=== PATIENT | female | born 1965 | race Caucasian/White ===

== ENCOUNTER 2017-03-04 01:10 | Emergency (ER) | payer MEDICAID ==
[~2017-03-04] VITALS: Wt 70.0 kg
[2017-03-04] MEDS ORDERED: ONDANSETRON 4 MG INJ IV STA ×2 (01:23)
[2017-03-04 02:31] VITALS: BP 120/73; PULSE 78; RESP 16
--- NOTE | 2017-03-04 03:16 | ERD ---
ER Documentation Chief Complaint Date/Time DATE: 03/04/17 TIME: 03:14 Chief Complaint ALOC ?ETOH ?drug use HPI This 51-year-old was brought in by her daughter for vomiting being very intoxicated after she drank extremely large ivone. She does not regularly drink alcohol. She is feeling fine all day until she drank the Ivone. She then began vomiting seemed very intoxicated. There is no trauma. Patient herself states that she thinks she drank too much and apologizes. ROS All systems reviewed and are negative except as per history of present illness. Allergies Allergies: Coded Allergies: No Known Drug Allergies (Verified Allergy, Unknown, 03/04/17) PMhx/Soc History of Surgery: Yes (left mastectomy/lumpectomy/lymphectomy) Anesthesia Reaction: No Hx Miscellaneous Medical Probl: Yes (breast CA; finnished chemo 02/19/17) Hx Alcohol Use: Yes (rarely) Hx Substance Use: No Hx Tobacco Use: No Smoking Status: Never smoker Physical Exam Vitals Vital Signs Date Time Temp Pulse Resp B/P Pulse Ox O2 Delivery O2 Flow Rate FiO2 03/04/17 02:31 78 16 120/73 99 Room Air 03/04/17 01:11 95.7 61 16 97 Physical Exam Const: [] Mild distress, holding emesis bag Head: Atraumatic Eyes: Normal Conjunctiva ENT: Normal External Ears, Nose and Mouth. Neck: Full range of motion..~ No meningismus. Resp: Clear to auscultation bilaterally Cardio: Regular rate and rhythm, no murmurs Abd: Soft, non tender, non distended. Normal bowel sounds Skin: No petechiae or rashes Back: No midline or flank tenderness Ext: No cyanosis, or edema Neur: Awake and alert and oriented 3, no focal deficits Psych: Normal Mood and Affect Results 24 hrs Current Medications Medications (Trade) Dose Ordered Sig/Hetal Route PRN Reason Start Time Stop Time Status Last Admin Dose Admin Ondansetron HCl (Zofran Inj) 4 mg ONCE STAT IV 03/04/17 01:23 03/04/17 01:24 DC 03/04/17 01:30 Ondansetron HCl (Zofran Inj) 4 mg ONCE STAT IV 03/04/17 01:23 03/04/17 01:24 DC 03/04/17 01:30 Procedures/MDM Patient was given Zofran injection of 8 mg as well as a liter of IV fluid. She was observed for. During which time she began feeling much better. 3 family members are now present at the bedside and are comfortable taking the patient home. Told the patient that I would get her icewater so that she may go home and I could be sure that she can take p.o. she drank the entire glass of ice water immediately. She is in good spirits. I am discharging her with primary care follow-up in 2-3 days as well as Zofran ODT per Departure Diagnosis: Primary Impression: Acute alcohol intoxication Additional Impression: Vomiting Condition: Stable RAVI BARNES DO March 04, 2017 03:16
[2017-03-04] MEDS ORDERED: ONDA4TAB11 PO (03:17)
== END 2017-03-04 03:26 | disposition home or self-care (01) ==
LOC: E/R 01:10
DX: F10.229 Alcohol dependence with intoxication, unspecified (principal); R11.10 Vomiting, unspecified; R40.2142 Coma scale, eyes open, spontaneous, at arrival to emergency department; R40.2252 Coma scale, best verbal response, oriented, at arrival to emergency department; R40.2362 Coma scale, best motor response, obeys commands, at arrival to emergency department; Z85.3 Personal history of malignant neoplasm of breast
CPT/HCPCS: 96374; J2405